=== PATIENT | male | born 1945 | race Caucasian/White ===

== ENCOUNTER 2022-03-26 13:03 | Inpatient (IN) | payer OTHER ==
[2022-03-26] MEDS ORDERED: Aspirin Chewable 81 MG TAB ONE (13:38)
[2022-03-26 14:01] LABS: #Basophils 0.1 10x3/uL (0.0-0.2); #Eosinphils 0.7 10x3/uL (0.0-0.5); #Monocytes 1.5 10x3/uL (0.0-1.1); %Eosinophils 6.2 % (0.0-6.0); %Lymphocytes 11.5 % (18.0-47.0); %Neutrophils 67.7 % (40.0-75.0); Hemoglobin 14.2 g/dL (13.5-17.5); Mean Corpuscular HGB CONC 32.3 g/dL (32.0-36.0); Mean Corpuscular Hemoglobin 29.7 pg (27.0-33.0); Mean Corpuscular Volume 91.8 fl (81.2-95.1); Mean Platelet Volume 11.1 fl (7.4-10.4); Platelet Count 224 10x3/uL (150-450); RBC Distribution Width 14.4 % (11.5-14.5); Red Blood Cell (RBC) Count 4.78 10x6/uL (4.32-5.72); White Blood Cell (WBC) Count 11.9 10x3/uL (3.5-10.5)
[2022-03-26 14:13] LABS: ALT (SGPT) 10 U/L (8-55); AST (SGOT) 14 U/L (5-34); Albumin 3.7 g/dL (3.4-4.8); Alkaline Phosphatase 79 U/L (40-110); Anion Gap 14 mmol/L (10-20); BUN (Urea Nitrogen) 10 mg/dL (8.4-25.7); Bilirubin, Total 0.9 mg/dL (0.2-1.2); Calc. Creatinine Clearance 0 mL/min (70-130); Calcium 9.2 mg/dL (7.8-10.44); Carbon Dioxide 26 mmol/L (23-31); Chloride 103 mmol/L (98-107); Globulin 3.5 g/dL (2.4-3.5); Glucose 139 mg/dL (83-110); Potassium 4.6 mmol/L (3.5-5.1); Protein, Total 7.2 g/dL (5.8-8.1); Sodium 138 mmol/L (136-145)
[2022-03-26 14:40] LABS: SARS-CoV-2 NAA Rapid Test Not Detected (NotDetected)
[2022-03-26] MEDS ORDERED: Azithromycin 500 MG VIAL ONE (14:40)
[2022-03-26] MEDS ORDERED: cefTRIAXone\\ROCEPHIN 2 GM VIAL ONE (14:40)
[2022-03-26] MEDS ORDERED: Acetaminophen 650 MG Suppository PR PRN (17:17)
[2022-03-26] MEDS ORDERED: Acetaminophen 325 MG TAB PO PRN (17:17)
[2022-03-26] MEDS ORDERED: Dextrose 50% Abboject 50 ML SYRINGE SLOW IVP PRN (17:17)
[2022-03-26] MEDS ORDERED: Dextrose 5% in Water 1,000 ML IV PRN (17:17)
[2022-03-26] MEDS ORDERED: Ondansetron PF 4 MG/2 ML Vial IVP PRN (17:17)
[2022-03-26] MEDS ORDERED: Guaifenesin DM 100-10/5 ML UDCUP PO PRN (17:17)
[2022-03-26] MEDS ORDERED: Ondansetron ODT 4 MG TAB PO PRN (17:17)
[2022-03-26 19:57] VITALS: BMI 31.0
[2022-03-26] MEDS: NPH, Human Insulin Isophane 300 UNIT/3 ML VIAL SC SCH (21:28)
[2022-03-27 03:54] LABS: Anion Gap 12 mmol/L (10-20); BUN (Urea Nitrogen) 14 mg/dL (8.4-25.7); Calc. Creatinine Clearance 110 mL/min (70-130); Calcium 8.8 mg/dL (7.8-10.44); Carbon Dioxide 27 mmol/L (23-31); Chloride 106 mmol/L (98-107); Glucose 134 mg/dL (83-110); Potassium 4.1 mmol/L (3.5-5.1); Sodium 141 mmol/L (136-145)
[2022-03-27 04:20] LABS: Hemoglobin 13.4 g/dL (13.5-17.5); Mean Corpuscular HGB CONC 31.8 g/dL (32.0-36.0); Mean Corpuscular Hemoglobin 29.5 pg (27.0-33.0); Mean Corpuscular Volume 92.5 fl (81.2-95.1); Mean Platelet Volume 11.7 fl (7.4-10.4); Platelet Count 199 10x3/uL (150-450); RBC Distribution Width 14.2 % (11.5-14.5); Red Blood Cell (RBC) Count 4.55 10x6/uL (4.32-5.72); White Blood Cell (WBC) Count 9.9 10x3/uL (3.5-10.5)
[2022-03-27 05:12] LABS: MDiff Complete? YES
[2022-03-27 05:13] LABS: Platelet Morphology Comment Appears Adequate; RBC Morphology Normal
[2022-03-27 05:16] LABS: Band 7 % (5-11); Eosinophils 5 % (0-10); Lymphocytes 12 % (21-51); Monocytes 18 % (0-10); Neutrophil 58 % (42-75)
[2022-03-27] MEDS: Levothyroxine 150 MCG TAB PO SCH (06:03)
[2022-03-27] MEDS: NPH, Human Insulin Isophane 300 UNIT/3 ML VIAL SC SCH ×2 (09:21→20:27)
[2022-03-27] MEDS: Aspirin 81 mg Enteric Coated Tablet PO SCH (09:21)
[2022-03-27] MEDS: Azithromycin 500 MG in Sodium Chloride 0.9% 250 ML 250 ML IVPB SCH (14:59)
[2022-03-27 16:13] LABS: Mononucleosis NEGATIVE (NEGATIVE)
[2022-03-27 16:14] LABS: MONO NEGATIVE CONTROL ZONE White (Negative) (White); MONO POSITIVE CONTROL Pink Line (Positive) (PINK/RED)
[2022-03-27] MEDS ORDERED: Amlodipine 5 MG TAB PO SCH (17:30)
[2022-03-27] MEDS: cefTRIAXone\\ROCEPHIN 1 GM in Sodium Chloride 0.9% 100 ML IVPB SCH (17:53)
[2022-03-27] MEDS: Terazosin HCl 5 MG CAP PO SCH (20:24)
[2022-03-27] MEDS: Allopurinol 300 MG TAB PO SCH (20:24)
[2022-03-28 05:05] LABS: Hemoglobin 13.9 g/dL (13.5-17.5); Mean Corpuscular HGB CONC 32.7 g/dL (32.0-36.0); Mean Corpuscular Hemoglobin 30.1 pg (27.0-33.0); Mean Platelet Volume 11.4 fl (7.4-10.4); Platelet Count 199 10x3/uL (150-450); RBC Distribution Width 13.9 % (11.5-14.5); Red Blood Cell (RBC) Count 4.62 10x6/uL (4.32-5.72); White Blood Cell (WBC) Count 11.6 10x3/uL (3.5-10.5)
[2022-03-28 05:18] LABS: Anion Gap 13 mmol/L (10-20); BUN (Urea Nitrogen) 14 mg/dL (8.4-25.7); Calc. Creatinine Clearance 118 mL/min (70-130); Calcium 8.9 mg/dL (7.8-10.44); Carbon Dioxide 25 mmol/L (23-31); Chloride 105 mmol/L (98-107); Glucose 126 mg/dL (83-110); Potassium 4.1 mmol/L (3.5-5.1); Sodium 139 mmol/L (136-145)
[2022-03-28 05:55] LABS: MDiff Complete? YES
[2022-03-28 05:56] LABS: Platelet Morphology Comment Appears Adequate; RBC Morphology Normal
[2022-03-28 05:59] LABS: Band 2 % (5-11); Eosinophils 6 % (0-10); Lymphocytes 16 % (21-51); Monocytes 16 % (0-10); Neutrophil 60 % (42-75)
[2022-03-28] MEDS: Levothyroxine 150 MCG TAB PO SCH (07:00)
[2022-03-28] MEDS: Aspirin 81 mg Enteric Coated Tablet PO SCH (08:57)
[2022-03-28] MEDS: Amlodipine 5 MG TAB PO SCH (08:58)
[2022-03-28] MEDS: Atorvastatin Calcium 40 MG TAB PO SCH (08:58)
[2022-03-28] MEDS: Furosemide 20 MG TAB PO SCH (08:58)
[2022-03-28] MEDS: NPH, Human Insulin Isophane 300 UNIT/3 ML VIAL SC SCH ×2 (08:58→20:32)
[2022-03-28 12:39] LABS: Legionella Urinary Ag Negative (Negative); Strep pneumo Urine Ag NEGATIVE (NEGATIVE)
[2022-03-28] MEDS: Azithromycin 500 MG in Sodium Chloride 0.9% 250 ML 250 ML IVPB SCH (16:27)
[2022-03-28] MEDS: Benzonatate 100 MG CAP PO SCH ×2 (16:27→20:31)
[2022-03-28] MEDS: HumaLOG 300 UNITS/3 ML VIAL SC PRN (16:33)
[2022-03-28] MEDS: cefTRIAXone\\ROCEPHIN 1 GM in Sodium Chloride 0.9% 100 ML IVPB SCH (18:08)
[2022-03-28] MEDS: Allopurinol 300 MG TAB PO SCH (20:31)
[2022-03-28] MEDS: Terazosin HCl 5 MG CAP PO SCH (20:31)
[2022-03-29 05:26] LABS: #Basophils 0.1 10x3/uL (0.0-0.2); #Monocytes 1.7 10x3/uL (0.0-1.1); #Neutrophils 7.4 10x3/uL (1.5-8.4); %Basophils 0.8 % (0.0-2.0); %Eosinophils 8.2 % (0.0-6.0); %Lymphocytes 12.6 % (18.0-47.0); %Monocytes 14.3 % (0.0-10.0); %Neutrophils 63.5 % (40.0-75.0); Hemoglobin 13.9 g/dL (13.5-17.5); Mean Corpuscular HGB CONC 32.6 g/dL (32.0-36.0); Mean Corpuscular Hemoglobin 29.8 pg (27.0-33.0); Mean Corpuscular Volume 91.4 fl (81.2-95.1); Mean Platelet Volume 11.5 fl (7.4-10.4); Platelet Count 201 10x3/uL (150-450); Red Blood Cell (RBC) Count 4.67 10x6/uL (4.32-5.72); White Blood Cell (WBC) Count 11.7 10x3/uL (3.5-10.5)
[2022-03-29 05:39] LABS: Anion Gap 13 mmol/L (10-20); BUN (Urea Nitrogen) 15 mg/dL (8.4-25.7); Calc. Creatinine Clearance 114 mL/min (70-130); Calcium 9.1 mg/dL (7.8-10.44); Carbon Dioxide 25 mmol/L (23-31); Chloride 103 mmol/L (98-107); Glucose 164 mg/dL (83-110); Potassium 4.2 mmol/L (3.5-5.1); Sodium 137 mmol/L (136-145)
[2022-03-29] MEDS: Levothyroxine 150 MCG TAB PO SCH (06:52)
[2022-03-29] MEDS: Benzonatate 100 MG CAP PO SCH ×3 (08:15→20:41)
[2022-03-29] MEDS: Atorvastatin Calcium 40 MG TAB PO SCH (08:15)
[2022-03-29] MEDS: Amlodipine 5 MG TAB PO SCH (08:15)
[2022-03-29] MEDS: Aspirin 81 mg Enteric Coated Tablet PO SCH (08:15)
[2022-03-29] MEDS: Furosemide 20 MG TAB PO SCH (08:16)
[2022-03-29] MEDS: NPH, Human Insulin Isophane 300 UNIT/3 ML VIAL SC SCH ×2 (08:16→20:43)
[2022-03-29] MEDS: Azithromycin 500 MG in Sodium Chloride 0.9% 250 ML 250 ML IVPB SCH (19:00)
[2022-03-29] MEDS: Allopurinol 300 MG TAB PO SCH (20:41)
[2022-03-29] MEDS: cefTRIAXone\\ROCEPHIN 1 GM in Sodium Chloride 0.9% 100 ML IVPB SCH (20:42)
[2022-03-29] MEDS: Terazosin HCl 5 MG CAP PO SCH (20:42)
[2022-03-29] MEDS: HumaLOG 300 UNITS/3 ML VIAL SC PRN (20:44)
[2022-03-30 04:19] LABS: #Basophils 0.1 10x3/uL (0.0-0.2); #Eosinphils 0.9 10x3/uL (0.0-0.5); #Monocytes 1.7 10x3/uL (0.0-1.1); #Neutrophils 7.4 10x3/uL (1.5-8.4); %Basophils 0.8 % (0.0-2.0); %Eosinophils 8.2 % (0.0-6.0); %Lymphocytes 9.7 % (18.0-47.0); %Neutrophils 65.9 % (40.0-75.0); Hemoglobin 13.8 g/dL (13.5-17.5); Mean Corpuscular HGB CONC 31.9 g/dL (32.0-36.0); Mean Corpuscular Hemoglobin 29.4 pg (27.0-33.0); Mean Corpuscular Volume 92.1 fl (81.2-95.1); Mean Platelet Volume 11.2 fl (7.4-10.4); Platelet Count 204 10x3/uL (150-450); Red Blood Cell (RBC) Count 4.69 10x6/uL (4.32-5.72); White Blood Cell (WBC) Count 11.2 10x3/uL (3.5-10.5)
[2022-03-30 04:50] LABS: Anion Gap 14 mmol/L (10-20); BUN (Urea Nitrogen) 20 mg/dL (8.4-25.7); Calc. Creatinine Clearance 89 mL/min (70-130); Calcium 8.7 mg/dL (7.8-10.44); Carbon Dioxide 25 mmol/L (23-31); Chloride 102 mmol/L (98-107); Glucose 304 mg/dL (83-110); Potassium 4.4 mmol/L (3.5-5.1); Sodium 137 mmol/L (136-145)
[2022-03-30] MEDS: Levothyroxine 150 MCG TAB PO SCH (05:57)
[2022-03-30] MEDS: HumaLOG 300 UNITS/3 ML VIAL SC PRN ×3 (06:07→20:25)
[2022-03-30] MEDS: Aspirin 81 mg Enteric Coated Tablet PO SCH (09:10)
[2022-03-30] MEDS: Atorvastatin Calcium 40 MG TAB PO SCH (09:10)
[2022-03-30] MEDS: Benzonatate 100 MG CAP PO SCH ×3 (09:10→19:42)
[2022-03-30] MEDS: Furosemide 20 MG TAB PO SCH (09:10)
[2022-03-30] MEDS: NPH, Human Insulin Isophane 300 UNIT/3 ML VIAL SC SCH ×2 (09:11→20:24)
[2022-03-30] MEDS: Amlodipine 5 MG TAB PO SCH (09:11)
[2022-03-30] MEDS: Azithromycin 500 MG in Sodium Chloride 0.9% 250 ML 250 ML IVPB SCH (16:14)
[2022-03-30] MEDS: cefTRIAXone\\ROCEPHIN 1 GM in Sodium Chloride 0.9% 100 ML IVPB SCH (19:19)
[2022-03-30] MEDS: Terazosin HCl 5 MG CAP PO SCH (19:42)
[2022-03-30] MEDS: Allopurinol 300 MG TAB PO SCH (19:42)
[2022-03-30] MEDS ORDERED: cefTRIAXone\\ROCEPHIN 1 GM in Sodium Chloride 0.9% 100 ML IVPB SCH (20:00)
[2022-03-31 05:43] LABS: Hemoglobin 14.1 g/dL (13.5-17.5); Mean Corpuscular HGB CONC 31.6 g/dL (32.0-36.0); Mean Corpuscular Hemoglobin 29.4 pg (27.0-33.0); Mean Corpuscular Volume 92.9 fl (81.2-95.1); Mean Platelet Volume 11.6 fl (7.4-10.4); Platelet Count 226 10x3/uL (150-450); RBC Distribution Width 14.1 % (11.5-14.5); White Blood Cell (WBC) Count 12.2 10x3/uL (3.5-10.5)
[2022-03-31 05:51] LABS: Anion Gap 14 mmol/L (10-20); BUN (Urea Nitrogen) 17 mg/dL (8.4-25.7); Calc. Creatinine Clearance 100 mL/min (70-130); Calcium 9.1 mg/dL (7.8-10.44); Carbon Dioxide 28 mmol/L (23-31); Chloride 101 mmol/L (98-107); Glucose 156 mg/dL (83-110); Potassium 4.5 mmol/L (3.5-5.1); Sodium 138 mmol/L (136-145)
[2022-03-31] MEDS: Levothyroxine 150 MCG TAB PO SCH (05:57)
[2022-03-31] MEDS: HumaLOG 300 UNITS/3 ML VIAL SC PRN (05:57)
[2022-03-31 06:38] LABS: MDiff Complete? YES; Manual Diff?? YES
[2022-03-31 07:19] LABS: Band 7 % (5-11); Eosinophils 9 % (0-10); Lymphocytes 10 % (21-51); Monocytes 17 % (0-10); Neutrophil 57 % (42-75)
[2022-03-31 07:20] LABS: Anisocytosis SLIGHT = 6-15 cells (100X) (0-5/hpf); Platelet Morphology Comment Appears Adequate
[2022-03-31 07:21] LABS: Toxic Granulation SLIGHT; Vacuoles SLIGHT
[2022-03-31] MEDS: Benzonatate 100 MG CAP PO SCH ×2 (08:59→15:00)
[2022-03-31] MEDS: Amlodipine 5 MG TAB PO SCH (08:59)
[2022-03-31] MEDS: Atorvastatin Calcium 40 MG TAB PO SCH (08:59)
[2022-03-31] MEDS: NPH, Human Insulin Isophane 300 UNIT/3 ML VIAL SC SCH (08:59)
[2022-03-31] MEDS: Aspirin 81 mg Enteric Coated Tablet PO SCH (08:59)
[2022-03-31] MEDS: Furosemide 20 MG TAB PO SCH (08:59)
[2022-03-31] MEDS: Azithromycin 500 MG in Sodium Chloride 0.9% 250 ML 250 ML IVPB SCH (15:00)
[2022-03-31 15:34] VITALS: BP 127/76; TEMP 98.8
== END 2022-03-31 17:20 | DRG 193 ==
LOC: EEVIPCON 13:03 → CSHERS 13:03 → CSHTELE 18:05
PROVIDERS: ADMIT Internal Medicine; ATTEND Hospitalist
DX: J18.9 Pneumonia, unspecified organism (principal); J96.01 Acute respiratory failure with hypoxia; I10 Essential (primary) hypertension; E78.5 Hyperlipidemia, unspecified; E03.9 Hypothyroidism, unspecified; E11.9 Type 2 diabetes mellitus without complications; N40.0 Benign prostatic hyperplasia without lower urinary tract symptoms; M10.9 Gout, unspecified; M19.90 Unspecified osteoarthritis, unspecified site; L20.9 Atopic dermatitis, unspecified; H91.90 Unspecified hearing loss, unspecified ear; Z20.822 Contact with and (suspected) exposure to COVID-19; Z96.649 Presence of unspecified artificial hip joint; Z79.899 Other long term (current) drug therapy; Z79.4 Long term (current) use of insulin; Z79.82 Long term (current) use of aspirin; Z79.84 Long term (current) use of oral hypoglycemic drugs; Z79.890 Hormone replacement therapy; Z88.8 Allergy status to other drugs, medicaments and biological substances; Z88.2 Allergy status to sulfonamides; Z98.49 Cataract extraction status, unspecified eye
CPT/HCPCS: 36415; 36416; 71045; 80048; 80053; 83605; 83880; 84145; 84443; 84484; 85025; 86308; 87040; 87449; 87633; 87899; 93005; 94760; 96365; 96367; J0456; J0696; J1815; J3490; J7050

== ENCOUNTER 2022-05-22 17:01 | Emergency (ER) | payer OTHER ==
[2022-05-22 17:37] LABS: Actual Bicarbonate (HCO3a) 26.6 mEq/L (22-28); Base Excess (BEa) 1.6 mEq/L (-2.0 to +3.0); CO2 Tension 43.1 mmHg (35.0-45.0); Calcium, Ionized (arterial) 1.16 mmol/L (1.12-1.30); Carboxyhemoglobin (COHb) 0.8 gm% (0.0-3.0); Hemoglobin (Hb) 13.9 g/dL (14.0-18.0); O2 Tension (PaO2), arterial 64.3 mmHg (> 70.0); Potassium - ABG Lab 3.5 mmol/L (3.70-5.30); Puncture Site LRA; pH, Arterial 7.41 (7.35-7.45)
[2022-05-22 17:39] LABS: ALV-art Gradient 138.505 mmHg (0-20)
[2022-05-22] MEDS ORDERED: Cefepime 2 GM VIAL ONE (17:40)
[2022-05-22 18:08] LABS: SARS-CoV-2 NAA Rapid Test Not Detected (NotDetected)
[2022-05-22 18:13] LABS: #Basophils 0.1 10x3/uL (0.0-0.2); #Eosinphils 0.8 10x3/uL (0.0-0.5); #Monocytes 1.7 10x3/uL (0.0-1.1); #Neutrophils 9.4 10x3/uL (1.5-8.4); %Basophils 0.4 % (0.0-2.0); %Eosinophils 6.2 % (0.0-6.0); %Monocytes 12.4 % (0.0-10.0); %Neutrophils 69.7 % (40.0-75.0); Hemoglobin 13.8 g/dL (13.5-17.5); Mean Corpuscular HGB CONC 31.9 g/dL (32.0-36.0); Mean Corpuscular Hemoglobin 29.4 pg (27.0-33.0); Mean Corpuscular Volume 91.9 fl (81.2-95.1); Mean Platelet Volume 10.8 fl (7.4-10.4); Platelet Count 239 10x3/uL (150-450); RBC Distribution Width 15.2 % (11.5-14.5); White Blood Cell (WBC) Count 13.5 10x3/uL (3.5-10.5)
[2022-05-22 18:15] LABS: ALT (SGPT) 62 U/L (8-55); AST (SGOT) 42 U/L (5-34); Albumin 3.1 g/dL (3.4-4.8); Alkaline Phosphatase 112 U/L (40-110); Anion Gap 16 mmol/L (10-20); BUN (Urea Nitrogen) 9 mg/dL (8.4-25.7); Bilirubin, Total 0.7 mg/dL (0.2-1.2); Calc. Creatinine Clearance 0 mL/min (70-130); Calcium 8.4 mg/dL (7.8-10.44); Carbon Dioxide 25 mmol/L (23-31); Chloride 104 mmol/L (98-107); Estimated GFR 91; Globulin 3.7 g/dL (2.4-3.5); Glucose 220 mg/dL (83-110); Potassium 3.9 mmol/L (3.5-5.1); Protein, Total 6.8 g/dL (5.8-8.1); Sodium 141 mmol/L (136-145)
[2022-05-22] MEDS ORDERED: Morphine 2 MG/ML VIAL ONE (19:37)
[2022-05-22 20:50] LABS: Lactic Acid 2.1 mmol/L (0.5-2.2)
== END 2022-05-22 22:59 | disposition short-term general hospital (02) ==
LOC: CSHERS 17:01
DX: A41.9 Sepsis, unspecified organism (principal); J18.9 Pneumonia, unspecified organism; Z20.822 Contact with and (suspected) exposure to COVID-19; I11.0 Hypertensive heart disease with heart failure; I50.9 Heart failure, unspecified; E11.9 Type 2 diabetes mellitus without complications; E03.9 Hypothyroidism, unspecified
CPT/HCPCS: 36415; 36600; 71045; 80053; 82805; 83605; 83880; 84484; 85025; 87040; 93005; 96374; 96375; J0692; J2270; J3370; U0002